=== PATIENT | male | born 1990 | race Caucasian/White ===

== ENCOUNTER 2024-10-14 07:43 | Emergency (ER) | payer OTHER ==
[2024-10-14 07:56] VITALS: BMI 32.5
[2024-10-14] MEDS: SODIUM CHLORIDE 1,000 ML IV STA (09:11)
[2024-10-14 09:27] LABS: HEMATOCRIT 41.4 % (35.4-49); HEMOGLOBIN 14.2 GM/dL (11.7-16.9); MCH 30.3 pg (25.7-33.7); MCHC 34.2 g/dl (32.0-35.9); MEAN CELL VOLUME 88.5 fl (80-96); MEAN PLT VOLUME 10.1 fl (7.5-11.1); PLATELET COUNT 139 10^3/uL (134-434); RBC 4.68 M/mm3 (4.00-5.60); RDW 14.4 % (11.9-15.9); WHITE BLOOD COUNT 3.9 K/mm3 (4.0-10.0)
[2024-10-14 09:49] LABS: POTASSIUM 4.5 mmol/L (3.5-5.1)
[2024-10-14 09:50] LABS: CALCIUM 8.7 mg/dL (8.5-10.1)
[2024-10-14 09:52] LABS: ALBUMIN 3.9 g/dl (3.4-5.0); BLOOD UREA NITROGEN 13.2 mg/dL (7-18)
[2024-10-14 09:55] LABS: CREATININE 1.4 mg/dL (0.55-1.3)
[2024-10-14 09:56] LABS: BILIRUBIN,TOTAL 0.3 mg/dL (0.2-1); TOT PROT 7.6 g/dl (6.4-8.2)
[2024-10-14 10:46] LABS: HIV INTERPRETATION NEGATIVE (NEGATIVE)
[2024-10-14 11:31] VITALS: BP 119/62; PULSE 82; RESP 15; TEMP 98.9
== END 2024-10-14 11:35 | disposition home or self-care (01) ==
LOC: JER 07:43
PROC: 3E0337Z Introduction of Electrolytic and Water Balance Substance into Peripheral Vein, Percutaneous Approach (ICD-10-PCS; principal; 2024-10-14)
DX: J10.1 Influenza due to other identified influenza virus with other respiratory manifestations (principal); R05.9 Cough, unspecified; R11.2 Nausea with vomiting, unspecified; R50.9 Fever, unspecified; R53.83 Other fatigue; M79.10 Myalgia, unspecified site; Z20.822 Contact with and (suspected) exposure to COVID-19
CPT/HCPCS: 0241U-QW; 36415; 71046-TC-FY; 80053; 84484; 85027; 86803; 87389; 93005; 93010; 99285-25